=== PATIENT | female | born 1990 | race Caucasian/White ===

== ENCOUNTER → 2016-03-30 | Outpatient (CLI) | payer OTHER ==
--- NOTE | 2016-03-31 09:06 | MR ---
EXAMINATION TYPE: MR lumbar spine wo con DATE OF EXAM: 03/30/2016 2:05 PM COMPARISON: NONE HISTORY: Low back pain CONTRAST: 0 mL intravenous MultiHance. TECHNIQUE: Multiplanar, multisequence images of the lumbar spine were acquired. FINDINGS: There is a superior endplate compression deformity of T12. Small Schmorl's node formation may also be present. There is approximately 10% loss of anterior vertebral body height. This may be c hronic. L5-S1: There is some central disc bulge and herniation extending inferiorly. No cord contact or exiti ng nerve root contact is evident. No spinal canal stenosis is present. No spinal canal stenosis. No foraminal stenosis. Disc desiccation is present. Mild narrowing of the disc height may be present.. L4-L5: No significant disc bulge or disc herniation. No spinal canal stenosis. No foraminal stenosi s. . L3-L4: No significant disc bulge or disc herniation. No spinal canal stenosis. No foraminal stenosi s. . L2-L3: No significant disc bulge or disc herniation. No spinal canal stenosis. No foraminal stenosi s. . L1-L2: No significant disc bulge or disc herniation. No spinal canal stenosis. No foraminal stenosi s. . T12-L1: No significant disc bulge or disc herniation. No spinal canal stenosis. No foraminal stenos is. . Cord terminates at the L1-2 level. IMPRESSION: 1. Disc herniation L5-S1 with disc desiccation. No thecal sac contact or exiting nerve root contact i s evident.
== END | disposition home or self-care (01) ==
LOC: RADMRIMAIN 13:27
PROVIDERS: ATTEND Orthopaedic Surgery Orthopaedic Surgery of the Spine
DX: M51.17 Intervertebral disc disorders with radiculopathy, lumbosacral region (principal)
CPT/HCPCS: 72148

== ENCOUNTER → 2021-01-17 | Outpatient (CLI) | payer BC ==
[2021-01-18 03:18] LABS: Thyroid Peroxidase Antibodies <9.0 U/mL (0.0-33.0)
[2021-01-18 06:46] LABS: African American GFR (CKD) 98.7 (60.0-200.0); Albumin/Globulin Ratio 2.27 (1.60-3.17); Anion Gap 16.2 mmol/L (4.00-12.00); Blood Urea Nitrogen 22.5 mg/dL (9.0-27.0); Calcium 9.5 mg/dL (8.7-10.3); Carbon Dioxide 22.8 mmol/L (21.6-31.8); Follicle Stimulating Hormone 4.3 mIU/mL; Globulin 2.2 g/dL (1.6-3.3); Luteinizing Hormone 1.7 mIU/mL; Non-African American GFR(CKD) 85.2 (60.0-200.0); Potassium 4.3 mmol/L (3.5-5.5); T4, Free (Free Thyroxine) 1.06 ng/dL (0.800-1.800); Total Bilirubin 0.4 mg/dL (0.30-1.20); Total Protein 7.2 g/dL (6.2-8.2)
[2021-01-18 07:03] LABS: ACTH 2.98 pg/mL (0.00-45.99); Prolactin 9.5 ng/mL (2.800-29.200)
== END | disposition home or self-care (01) ==
LOC: LABWHC1 15:59
PROVIDERS: ATTEND Internal Medicine Endocrinology, Diabetes & Metabolism
DX: N92.6 Irregular menstruation, unspecified (principal)
CPT/HCPCS: 36415; 80053; 82024; 82533; 82607; 82626; 83001; 83002; 84146; 84439; 84443; 84481; 86376

== ENCOUNTER 2024-01-20 11:40 | Emergency (ER) | payer BC, OTHER ==
[2024-01-20 11:53] VITALS: RESP 16; TEMP 98.1
--- NOTE | 2024-01-20 12:12 | ED ---
Skin/Abscess/FB HPI - General Chief complaint: Needlestick/Exposure Stated complaint: [facility]-Needle stick Time Seen by Provider: 01/20/24 12:12 Source: patient, RN notes reviewed Mode of arrival: ambulatory Limitations: no limitations - History of Present Illness Initial comments: 33-year-old female presented to the ER with a chief complaint of a needlestick. Patient was assisting in any dental procedure today and when cleaning up accidentally was poked by a needle in her left second digit. Patient states she is up-to-date on her hepatitis vaccinations but is unsure about her tetanus. Denies any other injuries or complaints. - Related Data Home Medications Medication Instructions Recorded Confirmed L.acidoph,Paracasei, B.lactis 1 cap PO DAILY 08/15/15 08/15/15 [Probiotic] Pnv,Calcium 72/Iron/Folic Acid 1 tab PO DAILY 08/15/15 08/15/15 [ Plus Tablet] Previous Rx's Medication Instructions Recorded Emtricitabine/Tenofovir (Tdf) 1 tab PO DAILY #28 tab 01/20/24 [Truvada 200 mg-300 mg Tablet] Raltegravir Potassium [Isentress] 400 mg PO Q12H #56 tab 01/20/24 Allergies Allergy/AdvReac Type Severity Reaction Status Date / Time sulfamethoxazole AdvReac Unknown Verified 01/20/24 11:58 [From Bactrim] trimethoprim [From Bactrim] AdvReac Unknown Verified 01/20/24 11:58 Review of Systems ROS Statement: Those systems with pertinent positive or pertinent negative responses have been documented in the HPI. ROS Other: All systems not noted in ROS Statement are negative. Past Medical History Past Medical History: No Reported History History of Any Multi-Drug Resistant Organisms: None Reported Additional Past Surgical History / Comment(s): oral surgery Past Psychological History: No Psychological Hx Reported Past Alcohol Use History: Occasional Past Drug Use History: None Reported General Exam Limitations: no limitations Respiratory exam: Present: normal lung sounds bilaterally. Absent: respiratory distress, wheezes, rales, rhonchi, stridor Cardiovascular Exam: Present: regular rate, normal rhythm, normal heart sounds. Absent: systolic murmur, diastolic murmur, rubs, gallop, clicks Extremities exam: Present: normal inspection, full ROM, normal capillary refill, other (2+ left radial pulse. brisk capillary refill). Absent: tenderness, pedal edema, joint swelling, calf tenderness Neurological exam: Present: alert, oriented X3, CN II-XII intact Skin exam: Present: warm, dry, intact, normal color, other (Left index finger pad puncture wound. No active bleeding.). Absent: rash Course Vital Signs 01/20/24 01/20/24 11:49 12:45 Temperature 98.1 F 98.1 F Pulse Rate 77 71 Respiratory 16 16 Rate Blood Pressure 119/77 115/79 O2 Sat by Pulse 100 100 Oximetry Medical Decision Making - Medical Decision Making Was pt. sent in by a medical professional or institution (, SID, [facility] DR[facility], urgent care, hospital, or senior care...) When possible be specific @ -No Did you speak to anyone other than the patient for history (EMS, parent, family, police, friend...)? What history was obtained from this source @ -No Did you review nursing and triage notes (agree or disagree)? Why? @ -I reviewed and agree with nursing and triage notes Were old charts reviewed (outside hosp., previous admission, EMS record, old EKG, old radiological studies, urgent care reports/EKG's, senior care records)? Report findings @ -No old charts were reviewed Differential Diagnosis (chest pain, altered mental status, abdominal pain women, abdominal pain men, vaginal bleeding, weakness, fever, dyspnea, syncope, headache, dizziness, GI bleed, back pain, seizure, CVA, palpatations, mental health, musculoskeletal)? @ -Laceration, abrasion, contusion, avulsion, foreign body this list is not meant to be all-inclusive EKG interpreted by me (3pts min.). @ -None done X-rays interpreted by me (1pt min.). @ -None done CT interpreted by me (1pt min.). @ -None done U/S interpreted by me (1pt. min.). @ -None done What testing was considered but not performed or refused? (CT, X-rays, U/S, labs)? Why? @ -None What meds were considered but not given or refused? Why? @ -None Did you discuss the management of the patient with other professionals (professionals i.e. , SID, CLARK DRIVER, lab, RT, psych nurse, foster care social worker, venue manager, teacher, sheriff's officer, family independence case manager)? Give summary @ -No Was smoking cessation discussed for >3mins.? @ -No Was critical care preformed (if so, how long)? @ -No Were there social determinants of health that impacted care today? How? (Homelessness, low income, unemployed, alcoholism, drug addiction, transportation, low edu. Level, literacy, decrease access to med. care, long term, rehab)? @ -No Was there de-escalation of care discussed even if they declined (Discuss DNR or withdrawal of care, Hospice)? DNR status @ -No What co-morbidities impacted this encounter? (DM, HTN, Smoking, COPD, CAD, Cancer, CVA, ARF, Chemo, Hep., AIDS, mental health diagnosis, sleep apnea, morbid obesity)? @ -None Was patient admitted / discharged? Hospital course, mention meds given and route, prescriptions, significant lab abnormalities, going to OR and other pertinent info. @ -Discharge. 33-year-old female presented to the ER for evaluation of needlestick. History and physical exam completed. Vital stable. Patient denies acute distress nontoxic-appearing. Puncture wound to left index finger. No active bleeding. Left upper extremity neurovascular intact. No other complaints. Tetanus updated. Patient elected to be treated prophylactically for HIV with Truvada and Isentress. Patient stable for discharge at this time. Strict return parameters discussed. Patient discharged in stable condition with follow-up to PCP. Patient verbally expressed understanding and agreement with care plan. Case discussed with ED attending, Dr. Garcias. Undiagnosed new problem with uncertain prognosis? @ -No Drug Therapy requiring intensive monitoring for toxicity (Heparin, Nitro, Insulin, Cardizem)? @ -No Were any procedures done? @ -No Diagnosis/symptom? @ -Needlestick Acute, or Chronic, or Acute on Chronic? @ -Acute Uncomplicated (without systemic symptoms) or Complicated (systemic symptoms)? @ -Uncomplicated Side effects of treatment? @ -No Exacerbation, Progression, or Severe Exacerbation? @ -No Poses a threat to life or bodily function? How? (Chest pain, [place], [place], pneumonia, PE, COPD, DKA, ARF, appy, cholecystitis, CVA, Diverticulitis, Homicidal, Suicidal, threat to staff... and all critical care pts) @ -Needlestick injuries can lead to infectious disease including but not limited to HIV and hepatitis. - Lab Data Lab Results 01/20/24 01/20/24 Range/Units 12:20 12:20 Hep Bs Antigen Nonreactive (Nonreactive) Hep Bs Antibody (Negative) Hep Bs Antibody, Quant 3.5 mIU/mL Hep B Core Total Ab Nonreactive (Nonreactive) Hep C IgG Ab Nonreactive (Nonreactive) HIV-1 Antibody Non-Reactive (Non-Reactive) HIV Ag/Ab Interpret HIV p24 Antibody Non-Reactive (Non-Reactive) HIV-2 Antibody Non-Reactive (Non-Reactive) HIV P24 Antigen Non-Reactive (Non-Reactive) Disposition Clinical Impression: Needle stick injury of finger Disposition: HOME SELF-CARE Condition: Stable Instructions (If sedation given, give patient instructions): Needle Stick Injuries (ED) Additional Instructions: Follow-up with PCP. Return to the ER for any new to worsening concerns. Prescriptions: Raltegravir Potassium [Isentress] 400 mg PO Q12H #56 tab Emtricitabine/Tenofovir (Tdf) [Truvada 200 mg-300 mg Tablet] 1 tab PO DAILY #28 tab Is patient prescribed a controlled substance at d/c from ED?: No Referrals: Sreedhar Van DO [Primary Care Provider] - 1-2 days Time of Disposition: 12:29
[2024-01-20] MEDS: DIPH,PERTUS(ACELL)TETVAC-LF 0.5 ML VIAL IM ONE (12:32)
[2024-01-20 12:47] VITALS: BP 115/79; PULSE 71
[2024-01-20 19:16] LABS: Hepatitis B Surface Antigen Nonreactive (Nonreactive); Hepatitis C IgG Antibody Nonreactive (Nonreactive)
[2024-01-20 20:51] LABS: HIV 2 AB Non-Reactive (Non-Reactive); HIV AB P24 Non-Reactive (Non-Reactive); HIV P24 AG Non-Reactive (Non-Reactive)
[2024-01-21 01:27] LABS: Hepatitis B Surface AB- Quant 3.5 mIU/mL
== END 2024-01-20 12:47 | disposition home or self-care (01) ==
LOC: EC 11:40
DX: S61.231A Puncture wound without foreign body of left index finger without damage to nail, initial encounter (principal); Z88.1 Allergy status to other antibiotic agents; Z88.2 Allergy status to sulfonamides; Z23 Encounter for immunization; W46.0XXA Contact with hypodermic needle, initial encounter; Y99.0 Civilian activity done for income or pay
CPT/HCPCS: 36415; 86704; 86706; 86803; 87340; 87390; 90471; 90715; 99283